=== PATIENT | female | born 1990 | race Caucasian/White ===

== ENCOUNTER → 2019-11-22 18:23 | Observation (INO) ==
[2019-11-22 18:30] LABS: Amphetamine Screen,Urine Negative ng/mL (Cutoff=1000); Barbiturate Screen,Urine Negative ng/mL (Cutoff=200); Benzodiazepines Screen,Urine Negative ng/mL (Cutoff=200); Cannabinoid Screen,Urine Negative ng/mL (Cutoff = 50); Cocaine Screen,Urine Negative ng/mL (Cutoff= 300); Opiate Screen,Urine Negative ng/mL (Cutoff=300); Phencyclidine Screen,Urine Negative ng/mL (Cutoff=25)
== END | disposition home or self-care (01) ==
LOC: 1NENULAB
PROVIDERS: ADMIT Advanced Practice Midwife; ATTEND Advanced Practice Midwife

== ENCOUNTER → 2019-11-25 18:10 | Observation (INO) | END | disposition home or self-care (01) | LOC: 1NENULAB | PROVIDERS: ADMIT Advanced Practice Midwife; ATTEND Advanced Practice Midwife ==

== ENCOUNTER 2019-12-01 03:53 | Inpatient (IN) ==
[2019-12-01] MEDS ORDERED: Famotidine 20 MG/2 ML VIAL IVP PRN (04:08)
[2019-12-01] MEDS ORDERED: *HR* Nalbuphine 10 MG/ML AMPUL IVP PRN (04:08)
[2019-12-01] MEDS ORDERED: Metoclopramide 10 MG/2 ML VIAL IVP PRN (04:08)
[2019-12-01] MEDS ORDERED: Naloxone 0.4 MG/ML INJ IVP PRN ×2 (04:08→07:36)
[2019-12-01] MEDS ORDERED: Lidocaine 1% 20 ML MDV INFILT PRN (04:08)
[2019-12-01] MEDS ORDERED: Oxytocin 20 units/ LR 1000 mL 20 UNIT/1,000 ML BAG IVC SCH ×2 (04:15→14:21)
[2019-12-01 04:45] LABS: Basophils # 0.1 K/mcL (0.0-0.2); Basophils % 0.3 %; Eosinophils # 0.1 K/mcL (0.0-0.6); Eosinophils % 0.8 %; Hemoglobin 13.6 g/dL (11.5-15.4); Immature Granulocytes % 0.9 % (0-4); Lymphocytes # 2.8 K/mcL (0.6-4.6); Lymphocytes % 19.7 %; Mean Corpuscular HGB Conc 35.8 g/dL (31.6-35.5); Mean Corpuscular Hemoglobin 33.4 pg (28.0-33.3); Mean Corpuscular Volume 93.4 fL (83.0-100.0); Mean Platelet Volume 10.3 fL (9.4-12.4); Monocytes # 0.8 K/mcL (0.0-1.3); Monocytes % 5.7 %; Neutrophils # 10.4 K/mcL (1.6-8.9); Platelet Count 250 K/mcL (140-400); Red Blood Count 4.07 M/mcL (3.82-4.97); Red Cell Distribution Width 13.2 % (11.5-14.5); Segmented Neutrophils % 72.6 %; White Blood Count 14.4 K/mcL (4.3-11.1)
[2019-12-01 04:52] LABS: Amphetamine Screen,Urine Negative ng/mL (Cutoff=1000); Barbiturate Screen,Urine Negative ng/mL (Cutoff=200); Benzodiazepines Screen,Urine Negative ng/mL (Cutoff=200); Cannabinoid Screen,Urine Negative ng/mL (Cutoff = 50); Cocaine Screen,Urine Negative ng/mL (Cutoff= 300); Opiate Screen,Urine Negative ng/mL (Cutoff=300); Phencyclidine Screen,Urine Negative ng/mL (Cutoff=25)
[2019-12-01] MEDS ORDERED: EPHEDrine 50 MG/ML VIAL IVP PRN (07:36)
[2019-12-01] MEDS ORDERED: *HR* FentaNYL (PF) 100 MCG/2 ML VIAL EP ONE (07:36)
[2019-12-01] MEDS ORDERED: Ondansetron 4 MG/2 ML VIAL IVP PRN (07:36)
[2019-12-01] MEDS ORDERED: Ropivacaine/PF 0.2% 20 ML VIAL EP ONE (07:36)
[2019-12-01] MEDS ORDERED: Epidural Premix (fent/bupiv) 110 ML EP SCH (07:45)
[2019-12-01] MEDS ORDERED: *HR* FentaNYL (PF) 100 MCG/2 ML VIAL ONE (08:12)
[2019-12-01] MEDS ORDERED: Ropivacaine/PF 0.2% 20 ML VIAL ONE (08:12)
[2019-12-01] MEDS: Ringers Solution, Lactated 1,000 ML IVC SCH ×2 (08:49→10:30)
[2019-12-01] MEDS ORDERED: Lanolin 7 G OINT...G. TP PRN (14:21)
[2019-12-01] MEDS ORDERED: Benzocaine/Menthol 56 GM AEROSOL SPRAY TP PRN (14:21)
[2019-12-01] MEDS ORDERED: Oxytocin 20 units/ LR 1000 mL 20 UNIT/1,000 ML BAG IVC ONE (14:21)
[2019-12-01] MEDS ORDERED: Measles/Mumps/Rubella Vacc 0.5 ML VIAL SQ PRN (14:21)
[2019-12-01] MEDS ORDERED: Rho Immune Globulin 1,500 UNIT SYRINGE IM PRN (14:21)
[2019-12-01] MEDS: Acetaminophen 325 MG TABLET PO PRN ×2 (15:14→23:40)
[2019-12-01] MEDS: Ibuprofen 600 MG TABLET PO PRN (19:01)
[2019-12-02 07:03] LABS: Basophils % 0.3 %; Eosinophils # 0.1 K/mcL (0.0-0.6); Hematocrit 32.1 % (35.3-44.9); Immature Granulocytes % 0.6 % (0-4); Lymphocytes # 2.3 K/mcL (0.6-4.6); Lymphocytes % 18.2 %; Mean Corpuscular HGB Conc 34.3 g/dL (31.6-35.5); Mean Corpuscular Hemoglobin 33.7 pg (28.0-33.3); Mean Corpuscular Volume 98.5 fL (83.0-100.0); Mean Platelet Volume 10.2 fL (9.4-12.4); Monocytes # 0.8 K/mcL (0.0-1.3); Monocytes % 6.7 %; Neutrophils # 9.1 K/mcL (1.6-8.9); Platelet Count 187 K/mcL (140-400); Red Blood Count 3.26 M/mcL (3.82-4.97); Red Cell Distribution Width 13.3 % (11.5-14.5); Segmented Neutrophils % 73.2 %; White Blood Count 12.4 K/mcL (4.3-11.1)
[2019-12-02 07:54] VITALS: BP 98/61
[2019-12-02] MEDS: Ibuprofen 600 MG TABLET PO PRN (08:02)
[2019-12-02] MEDS ORDERED: Prenatal Vit/FA 1 EACH TABLET PO SCH (09:00)
== END 2019-12-02 16:37 | disposition home or self-care (01) | DRG 807 ==
LOC: 1NENULAB 03:53 → 1NENUOBS 14:49
PROVIDERS: ADMIT Obstetrics & Gynecology; ATTEND Obstetrics & Gynecology